=== PATIENT | female | born 1950 | race Asian ===

== ENCOUNTER 2020-07-01 00:40 | Emergency (ER) | payer OTHER ==
--- OUTSIDE RECORDS SUMMARY | 2020-07-01 00:43 | XMS REPORT | Continuity of Care Document ---
:1950 Author Organization [facility] t Address [address] [place] [address] Dr. Bell [address] [place] [id number] Care Team Providers Name Role Phone Unavailable Unavailable Unavailable Problems This patient has no known problems. Allergies, Adverse Reactions, Alerts This patient has no known allergies or adverse reactions. Medications This patient has no known medications. Procedures This patient has no known procedures. Results This patient has no known results.
[2020-07-01] MEDS ORDERED: dexAMETHasone 10 MG/ML VIAL ONE (01:59)
[2020-07-01] MEDS ORDERED: HYDROCODONE/CHLORPHEN 5 ML/OSYR ONE (01:59)
[2020-07-01] MEDS ORDERED: NA CHLORIDE 0.9% 1,000 ML ONE (02:00)
[2020-07-01 02:52] LABS: Basophils % 0.4 % (0-1.3); Lymphocytes % 17.7 % (15.3-44.8); MPV 7.6 fL (7.6-11.3); RBC Red Blood Cell Count 4.35 M/uL (3.86-4.86)
[2020-07-01 02:54] LABS: Protime INR 1.03
[2020-07-01 03:18] LABS: ALT/SGPT 43 U/L (12-78); AST/SGOT 49 U/L (15-37); Albumin 3.5 g/dL (3.4-5.0); Alkaline Phosphatase 64 U/L (45-117); BUN Blood Urea Nitrogen 17 mg/dL (7-18); Bicarbonate 25 mmol/L (21-32); Bilirubin Direct < 0.1 mg/dL (0-0.2); Bilirubin Total 0.3 mg/dL (0.2-1.0); Glucose Level 105 mg/dL (74-106); Lipase 87 U/L (73-393); Potassium 4.2 mmol/L (3.5-5.1); Protein, Total 8.1 g/dL (6.4-8.2); Sodium Level 135 mmol/L (136-145); Troponin (Emerg Dept Use Only) < 0.02 ng/mL (0.0-0.045)
[2020-07-01 03:22] LABS: Ferritin 1997.7 ng/mL (8-388)
[2020-07-01 03:31] LABS: Arterial Blood Carboxyhemoglob 1.2 % (0-1.5); Blood Gas Oxyhemoglobin 88.8 % (94-97); Blood O2 Saturation 90.6 % (92-98.5)
[2020-07-01 04:24] LABS: Urine Blood NEGATIVE (NEG); Urine Glucose NEGATIVE (NEG); Urine Protein 2+ (NEG); Urine Specific Gravity 1.025 (1.005-1.030); Urine pH 5.5 (5.0-7.0)
--- NOTE | 2020-07-01 04:28 | ER ---
Nurse's Notes [facility] Name: Jaime Padilla Age: 70 yrs Sex: Female : 1950 Arrival Date: 07/01/2020 Time: 00:44 Bed 16 Private MD: Diagnosis: Pneumonia. Positive Covid 19. Presentation: 07/01 00:50 Chief complaint: Patient states: I tested positive for covid on Friday. I have a cough jb4 that has gotten worse and I just want it to go away. My chest hurts when I cough and I feel weak. 00:50 Coronavirus screen: Client presents with at least one sign or symptom that may indicate jb4 coronavirus-19. Standard/surgical mask placed on the client. Client reports previous positive COVID test result. Date of collection: June 23, 2020. Ebola Screen: No symptoms or risks identified at this time. 00:50 Method Of Arrival: Ambulatory jb4 00:50 Initial Sepsis Screen: Does the patient meet any 2 criteria? HR > 90 bpm. Yes Does the jb4 patient have a suspected source of infection? No. Patient's initial sepsis screen is negative. Risk Assessment: Do you want to hurt yourself or someone else? Patient reports no desire to harm self or others. Onset of symptoms was June 23, 2020. Transition of care: patient was not received from another setting of care. 00:50 Acuity: AIDAN 3 jb4 Historical: - Allergies: 00:50 Iodine; jb4 00:50 Codeine; jb4 - Home Meds: 00:50 azithromycin 250 mg Oral tab [Active]; budesonide 0.5 mg/2 mL inhalation nbsp 3x per jb4 day, PRN [Active]; Simvastatin Oral [Active]; Verapamil Oral [Active]; solifenacin oral oral [Active]; - PMHx: 00:50 Hypertension; High Cholesterol; Hernia; jb4 - PSHx: 00:50 Hernia repair; jb4 - Immunization history:: Adult Immunizations up to date. - Social history:: Smoking status: Patient denies any tobacco usage or history of. Patient/guardian denies using alcohol, street drugs. Screenin:00 Abuse screen: Denies threats or abuse. Nutritional screening: No deficits noted. jb4 Tuberculosis screening: No symptoms or risk factors identified. Fall Risk None identified. Assessment: 01:00 General: Appears in no apparent distress. uncomfortable, Behavior is calm, cooperative, jb4 appropriate for age. Pain: Complains of pain in chest Pain does not radiate. Pain currently is 7 out of 10 on a pain scale. Quality of pain is described as aching. Neuro: Level of Consciousness is awake, alert, obeys commands, Oriented to person, place, time, situation. Cardiovascular: Patient's skin is warm and dry. Respiratory: Reports cough that is persistent Airway is patent Respiratory effort is even, unlabored, Respiratory pattern is regular, symmetrical. GI: No signs and/or symptoms were reported involving the gastrointestinal system. : No signs and/or symptoms were reported regarding the genitourinary system. EENT: No signs and/or symptoms were reported regarding the EENT system. Derm: Skin is intact, Skin is pink, warm \\T\\ dry. Musculoskeletal: Circulation, motion, and sensation intact. Range of motion: intact in all extremities. 02:00 Reassessment: Patient appears in no apparent distress at this time. Patient and/or jb4 family updated on plan of care and expected duration. Pain level reassessed. Patient is alert, oriented x 3, equal unlabored respirations, skin warm/dry/pink. PT denies allergy to Hydrocodone. States " It just makes me drowsy and loopy.". 03:00 Reassessment: Patient appears in no apparent distress at this time. Patient and/or jb4 family updated on plan of care and expected duration. Pain level reassessed. Patient is alert, oriented x 3, equal unlabored respirations, skin warm/dry/pink. 04:15 Reassessment: Patient appears in no apparent distress at this time. Patient and/or jb4 family updated on plan of care and expected duration. Pain level reassessed. Patient is alert, oriented x 3, equal unlabored respirations, skin warm/dry/pink. Provider at the bedside. Pt verbalizes desire not to be hospitalized. 04:44 Reassessment: Patient appears in no apparent distress at this time. Patient and/or jb4 family updated on plan of care and expected duration. Pain level reassessed. Patient is alert, oriented x 3, equal unlabored respirations, skin warm/dry/pink. Vital Signs: 00:50 BP 134 / 98; Pulse 98; Resp 16; Temp 100.3; Pulse Ox 94% on R/A; Weight 61.23 kg; jb4 Height 4 ft. 11 in. (149.86 cm); Pain 7/10; 02:00 BP 152 / 70; Pulse 91; Resp 16; Pulse Ox 96% on R/A; jb4 03:30 BP 134 / 86; Pulse 94; Resp 16; Pulse Ox 94% on R/A; jb4 04:15 BP 116 / 57; Pulse 92; Resp 18; Pulse Ox 93% on R/A; jb4 04:44 Temp 101.5(O); jb4 00:50 Body Mass Index 27.27 (61.23 kg, 149.86 cm) jb4 04:44 Pt refused tylenol and motrin states " I will take my own when I get home. jb4 ED Course: 00:44 Patient arrived in ED. cl3 00:49 Contreras Sorto MD is Attending Physician. pkl 00:50 Arm band placed on right wrist. jb4 01:00 Patient has correct armband on for positive identification. Placed in gown. Bed in low jb4 position. Call light in reach. Side rails up X 1. Pulse ox on. NIBP on. 01:06 Tre Tate, REA is Primary Nurse. jb4 01:19 Triage completed. jb4 02:35 Inserted saline lock: 20 gauge in left antecubital area, using aseptic technique. Blood oe collected. 02:49 CXR XRAY In Process Unspecified. EDMS 03:00 CT Chest Wo Con In Process Unspecified. EDMS 03:41 COVID swab sent to lab. sg 04:46 No provider procedures requiring assistance completed. IV discontinued, intact, jb4 bleeding controlled, No redness/swelling at site. Pressure dressing applied. Administered Medications: 02:00 Drug: Tussionex Pennkinetic ER 5 ml Route: PO; jb4 03:00 Follow up: Response: No adverse reaction; Marked relief of symptoms; Pain is decreased jb4 02:38 Drug: Decadron - Dexamethasone 6 mg Route: IVP; Site: left antecubital; jb4 03:00 Follow up: Response: No adverse reaction jb4 03:00 Drug: NS 0.9% 1000 ml Route: IV; Rate: 125 ml/hr; Site: left antecubital; jb4 04:45 Follow up: Response: No adverse reaction; IV Status: Order to discontinue infusion; IV jb4 Intake: 222ml Intake: 04:45 IV: 222ml; Total: 222ml. jb4 Outcome: 04:26 Discharge ordered by . lynda 04:46 Discharged to home ambulatory, with family. jb4 04:46 Condition: stable 04:46 Discharge instructions given to patient, Instructed on discharge instructions, follow up and referral plans. medication usage, Demonstrated understanding of instructions, follow-up care, medications, Prescriptions given X 2. 04:46 Patient left the ED. jb4 Signatures: Dispatcher [employer] EDMS Dk Hutchinson RN Contreras Martinez MD MD pkl Bryson, James, RN RN jb4 Froylan Griffin Charde cl3 Corrections: (The following items were deleted from the chart) 03:02 02:00 Reassessment: PT denies allergy to Hydrocodone. States " It just makes me drowsy jb4 and loopy." jb4 03:02 02:39 General: Appears in no apparent distress. uncomfortable, Behavior is calm, jb4 cooperative, appropriate for age, jb4 03:02 02:39 Pain: Complains of pain in chest Pain does not radiate. Pain currently is 7 out jb4 of 10 on a pain scale. Quality of pain is described as aching, Aggravated by Coughing jb4 03:02 02:39 Neuro: Level of Consciousness is awake, alert, obeys commands, Oriented to jb4 person, place, time, situation, jb4 03:02 02:39 Cardiovascular: Patient's skin is warm and dry. jb4 jb4 03:02 02:39 Respiratory: Airway is patent Respiratory effort is even, unlabored, Respiratory jb4 pattern is regular, symmetrical, jb4 04:22 04:15 Reassessment: Patient appears in no apparent distress at this time. Patient jb4 and/or family updated on plan of care and expected duration. Pain level reassessed. Patient is alert, oriented x 3, equal unlabored respirations, skin warm/dry/pink. jb4
--- NOTE | 2020-07-01 04:28 | EDPHYS ---
Physician Documentation [facility] Name: Jaime Padilla Age: 70 yrs Sex: Female : 1950 Arrival Date: 07/01/2020 Time: 00:44 Bed 16 Private MD: ED Physician Contreras Sorto HPI: 07/01 01:39 This 70 yrs old Female presents to ER via Ambulatory with complaints of Cough, pkl COVID +. 01:39 The patient or guardian reports cough, described as moderate. Onset: The pkl symptoms/episode began/occurred yesterday, and became worse just prior to arrival. Patient tested positive Covid 19 1 week ago. Historical: - Allergies: 00:50 Iodine; jb4 00:50 Codeine; jb4 - Home Meds: 00:50 azithromycin 250 mg Oral tab [Active]; budesonide 0.5 mg/2 mL inhalation nbsp 3x per jb4 day, PRN [Active]; Simvastatin Oral [Active]; Verapamil Oral [Active]; solifenacin oral oral [Active]; - PMHx: 00:50 Hypertension; High Cholesterol; Hernia; jb4 - PSHx: 00:50 Hernia repair; jb4 - Immunization history:: Adult Immunizations up to date. - Social history:: Smoking status: Patient denies any tobacco usage or history of. Patient/guardian denies using alcohol, street drugs. ROS: 01:39 Eyes: Negative for injury, pain, redness, and discharge, ENT: Negative for injury, pkl pain, and discharge, Neck: Negative for injury, pain, and swelling, Cardiovascular: Negative for chest pain, palpitations, and edema. 01:39 Respiratory: Positive for cough, with white sputum. 01:39 Abdomen/GI: Negative for abdominal pain, nausea, vomiting, and diarrhea. 01:39 Back: Negative for acute changes. 01:39 : Negative for urinary symptoms. 01:39 MS/extremity: Negative for acute changes. 01:39 Skin: Negative for rash. 01:39 Neuro: Negative for altered mental status. Exam: 01:39 Head/Face: Normocephalic, atraumatic. Eyes: Pupils equal round and reactive to light, pkl extra-ocular motions intact. Lids and lashes normal. Conjunctiva and sclera are non-icteric and not injected. Cornea within normal limits. Periorbital areas with no swelling, redness, or edema. ENT: Nares patent. No nasal discharge, no septal abnormalities noted. Tympanic membranes are normal and external auditory canals are clear. Oropharynx with no redness, swelling, or masses, exudates, or evidence of obstruction, uvula midline. Mucous membranes moist. Neck: Trachea midline, no thyromegaly or masses palpated, and no cervical lymphadenopathy. Supple, full range of motion without nuchal rigidity, or vertebral point tenderness. No Meningismus. Chest/axilla: Normal chest wall appearance and motion. Nontender with no deformity. No lesions are appreciated. Cardiovascular: Regular rate and rhythm with a normal S1 and S2. No gallops, murmurs, or rubs. Normal PMI, no JVD. No pulse deficits. 01:39 Respiratory: the patient does not display signs of respiratory distress, Respirations: normal, Breath sounds: rales, that are mild, are scattered. 01:39 Abdomen/GI: Bowel sounds: normal, Palpation: abdomen is soft and non-tender, in all quadrants. 01:39 Back: Exam negative for acute changes. 01:39 : Exam negative for acute changes. 01:39 Musculoskeletal/extremity: Exam is negative for acute changes. 01:39 Skin: Exam negative for rash. 01:39 Neuro: Orientation: is normal, Mentation: is normal, Cranial nerves: grossly normal, Motor: is normal. Vital Signs: 00:50 BP 134 / 98; Pulse 98; Resp 16; Temp 100.3; Pulse Ox 94% on R/A; Weight 61.23 kg; jb4 Height 4 ft. 11 in. (149.86 cm); Pain 7/10; 02:00 BP 152 / 70; Pulse 91; Resp 16; Pulse Ox 96% on R/A; jb4 03:30 BP 134 / 86; Pulse 94; Resp 16; Pulse Ox 94% on R/A; jb4 04:15 BP 116 / 57; Pulse 92; Resp 18; Pulse Ox 93% on R/A; jb4 04:44 Temp 101.5(O); jb4 00:50 Body Mass Index 27.27 (61.23 kg, 149.86 cm) jb4 04:44 Pt refused tylenol and motrin states " I will take my own when I get home. jb4 MDM: 00:49 Patient medically screened. pkl 04:22 Data reviewed: vital signs, nurses notes, lab test result(s), EKG, radiologic studies, pkl CT scan, plain films. ED course: Patient feeling better. Discussed lab and imaging studies with patient and . Patient does not want to be admitted at this time. Advised patient patient to return if symptoms are worse. Patient understood instructions. 07/01 01:33 Order name: Blood Culture Adult (2) pkl 07/01 01:33 Order name: BMP; Complete Time: 04:14 pkl 07/01 01:33 Order name: C-Reactive Protein; Complete Time: 04:14 pkl 07/01 01:33 Order name: CBC with Diff; Complete Time: 04:14 pkl 07/01 01:33 Order name: D-Dimer; Complete Time: 04:14 pkl 07/01 01:33 Order name: Ferritin; Complete Time: 04:14 pkl 07/01 01:33 Order name: Flu pkl 07/01 01:33 Order name: Lactate; Complete Time: 04:14 pkl 07/01 01:33 Order name: LFT's; Complete Time: 04:14 pkl 07/01 01:33 Order name: Lipase; Complete Time: 04:14 pkl 07/01 01:33 Order name: Procalcitonin; Complete Time: 04:14 pkl 07/01 01:33 Order name: PT-INR; Complete Time: 04:14 pkl 07/01 01:33 Order name: Ptt, Activated; Complete Time: 04:14 pkl 07/01 01:33 Order name: Strep pkl 07/01 01:33 Order name: Troponin (emerg Dept Use Only); Complete Time: 04:14 pkl 07/01 01:33 Order name: CXR XRAY pkl 07/01 01:33 Order name: EKG; Complete Time: 01:36 pkl 07/01 01:33 Order name: Cardiac monitoring; Complete Time: 02:39 pkl 07/01 01:33 Order name: Document PUI#; Complete Time: 01:43 pkl 07/01 01:33 Order name: Droplet/Contact Precautions; Complete Time: 01:43 pkl 07/01 01:33 Order name: ABG; Complete Time: 04:14 pkl 07/01 01:35 Order name: CT Chest Wo Con pkl 07/01 04:13 Order name: Urine Dipstick--Ancillary (enter results) mw2 07/01 04:15 Order name: Urine Dipstick-Ancillary EDMS 07/01 04:20 Order name: Throat Culture EDMS 07/01 01:33 Order name: EKG - Nurse/Tech; Complete Time: 02:39 pkl 07/01 01:33 Order name: IV Start; Complete Time: 02:39 pkl 07/01 01:33 Order name: Labs collected and sent; Complete Time: 02:39 pkl 07/01 01:33 Order name: Notify Health Dept [phone]/ ; Complete Time: :43 pkl 07/01 01:33 Order name: O2 Per Protocol; Complete Time: 01:43 pkl 07/01 01:33 Order name: O2 Sat Monitoring; Complete Time: 01:43 pkl 07/01 01:33 Order name: Urine Dipstick-Ancillary (obtain specimen); Complete Time: 04:06 pkl Administered Medications: 02:00 Drug: Tussionex Pennkinetic ER 5 ml Route: PO; jb4 03:00 Follow up: Response: No adverse reaction; Marked relief of symptoms; Pain is decreased jb4 02:38 Drug: Decadron - Dexamethasone 6 mg Route: IVP; Site: left antecubital; jb4 03:00 Follow up: Response: No adverse reaction jb4 03:00 Drug: NS 0.9% 1000 ml Route: IV; Rate: 125 ml/hr; Site: left antecubital; jb4 04:45 Follow up: Response: No adverse reaction; IV Status: Order to discontinue infusion; IV jb4 Intake: 222ml Disposition: 07/01/20 04:26 Discharged to Home. Impression: Pneumonia. Positive Covid 19.. - Condition is Stable. - Prescriptions for Guaifenesin- DM 10-100 mg/5 mL Oral Liquid - take 10 milliliter by ORAL route every 8 hours As needed as needed; 120 milliliter. Prednisone 20 mg Oral Tablet - take 2 tablet by ORAL route once daily for 5 days; 10 tablet. - Medication Reconciliation Form, Thank You Letter, Antibiotic Education, Prescription Opioid Use form. - Follow up: Private Physician; When: 2 - 3 days; Reason: Re-evaluation by your physician. - Problem is new. - Symptoms have improved. Signatures: Dispatcher [employer] Contreras Nolen MD MD pkl Tre Tate, RN RN jb4 Corrections: (The following items were deleted from the chart) 04:07 01:33 Nagy ordered. pkl jb4 04:46 04:26 07/01/2020 04:26 Discharged to Home. Impression: Pneumonia. Positive Covid 19.. jb4 Condition is Stable. Forms are Medication Reconciliation Form, Thank You Letter, Antibiotic Education, Prescription Opioid Use. Follow up: Private Physician; When: 2 - 3 days; Reason: Re-evaluation by your physician. Problem is new. Symptoms have improved. pkl
--- NOTE | 2020-07-01 08:41 | RAD REPORT ---
EXAM DESCRIPTION: Maria G Single View07/01/2020 2:49 am CLINICAL HISTORY: Chest pain COMPARISON: 2008 FINDINGS: [id number] bilateral pulmonary opacities. The heart is normal size IMPRESSION: [id number] bilateral pulmonary opacities may indicate Covid pneumonia
--- NOTE | 2020-07-01 09:20 | RAD REPORT ---
EXAM DESCRIPTION: CT - Thorax Wo Denny - 07/01/2020 6:24 am CLINICAL HISTORY: SOB, cough TECHNIQUE: Contiguous axial images obtained through the chest without IV contrast. Coronal and sagit tyrone reformatted images provided. This exam was performed according to our departmental dose-optimization program, which includes autom ated exposure control, adjustment of the mA and/or kV according to patient size and/or use of iterati ve reconstruction technique. COMPARISON: No prior exams provided for comparison. FINDINGS: Lungs: Patchy multifocal groundglass opacities bilaterally. Airways are patent. Pleura: No effusion. No pneumothorax. Heart and pericardium: The heart is enlarged. Coronary artery calcification. No pericardial effusion. Mediastinum and lucia: Top normal mediastinal lymph nodes. Lower neck and chest wall: Unremarkable Vessels: Mild atherosclerotic disease. The ascending aorta measures 3.9 cm in maximum diameter. Upper abdomen: The liver is enlarged. Layering gallstones within a mildly distended gallbladder. Bones: Multilevel spondylosis. No acute fracture. IMPRESSION: 1. Imaging features can be seen with viral pneumonia, though are nonspecific and can o ccur with a variety of infectious and noninfectious processes. PneInd Reference: https://pubs.rsna.or g/doi/full/10.1148/ryct.[email or web address] 2. Other findings as above. Electronically signed by: Colin Barriga MD 07/01/2020 3:08 AM MUNICIPAL CLERK Due to temporary technical issues with the PACS/Fluency reporting system, reports are being signed by the in house radiologists without review as a courtesy to insure prompt reporting. The interpreting radiologist is fully responsible for the content of the report.
--- NOTE | 2020-07-01 20:01 | EKG ---
Test Date: 2020-07-01 Test Time: 02:12:01 Heel Molder: EDISON MEASUREMENT RESULTS: Intervals: Rate: 95 [place]: 164 QRSD: 98 QT: 370 QTc: 464 [place]: P: 46 NJ: 164 QRS: 85 T: 6 INTERPRETIVE STATEMENTS: Sinus rhythm with occasional and consecutive premature ventricular complexes and fusion complexes Cannot rule out Anterior infarct, age undetermined Abnormal ECG Compared to ECG 12/24/2012 10:00:59 Fusion complex(es) now present Ventricular premature complex(es) now present T-wave abnormality no longer present Possible ischemia no longer present Myocardial infarct finding still present Electronically Signed On 07-01-20 20:01:03 SUGAR REPROCESS OPERATOR HEAD by Tanner Ricardo
[2020-07-06 00:52] VITALS: BP 116/57; TEMP 101.5; O2SAT 93
== END 2020-07-01 04:46 | disposition home or self-care (01) ==
LOC: ER 00:40
DX: U07.1 COVID-19 (principal); J18.9 Pneumonia, unspecified organism; I10 Essential (primary) hypertension; E78.00 Pure hypercholesterolemia, unspecified; Z88.5 Allergy status to narcotic agent; Z91.048 Other nonmedicinal substance allergy status
CPT/HCPCS: 96361; 93005 ×2; 87040 ×2; 87070; 85025; 80048; 36415; 85610; 85379; 80076; 87081; 83605; 85730; 81003; 84484; 82728; 83690; 84145; 86140; 87804 ×2; 71250; 71045; 82805; 96374; 99284; U0003; J1100; J7030

== ENCOUNTER 2020-07-04 09:49 | Inpatient (IN) | payer OTHER ==
[2020-07-04 11:01] LABS: Basophils % 0.3 % (0-1.3); Hematocrit 42.5 % (36.0-45.0); Lymphocytes % 16.9 % (15.3-44.8); MPV 7.6 fL (7.6-11.3); RBC Red Blood Cell Count 4.53 M/uL (3.86-4.86)
[2020-07-04 11:04] LABS: Protime INR 1.02
[2020-07-04 11:29] LABS: ALT/SGPT 38 U/L (12-78); AST/SGOT 50 U/L (15-37); Albumin 3.2 g/dL (3.4-5.0); Alkaline Phosphatase 75 U/L (45-117); BUN Blood Urea Nitrogen 17 mg/dL (7-18); Bicarbonate 25 mmol/L (21-32); Bilirubin Direct 0.1 mg/dL (0-0.2); Bilirubin Total 0.6 mg/dL (0.2-1.0); Glucose Level 97 mg/dL (74-106); Lipase 81 U/L (73-393); Potassium 3.7 mmol/L (3.5-5.1); Protein, Total 8.7 g/dL (6.4-8.2); Sodium Level 136 mmol/L (136-145); Troponin (Emerg Dept Use Only) < 0.02 ng/mL (0.0-0.045)
--- NOTE | 2020-07-04 11:30 | RAD REPORT ---
EXAM DESCRIPTION: Treyt Single View07/04/2020 11:21 am CLINICAL HISTORY: Chest pain COMPARISON: July 01 FINDINGS: Moderate bilateral pulmonary opacities have mildly worsened. Heart remains enlarged IMPRESSION: Worsening in moderate bilateral pulmonary opacities the which may indicate Covid pneumon ia
--- NOTE | 2020-07-04 11:43 | ER ---
Nurse's Notes [facility] Name: Jaime Padilla Age: 70 yrs Sex: Female : 1950 Arrival Date: 07/04/2020 Time: 09:52 Bed 15 Private MD: Diagnosis: Coronavirus infection, [id number];Pneumonia, unspecified organism;Hypoxia Presentation: 07/04 09:52 Chief complaint: EMS states: Tested positive for COVID 12-5-20; woke this morning with jl7 SOB, 91% on arrival and anxious, also dx with pneumonia. Coronavirus screen: Client denies travel out of the [place] in the last 14 days. shortness of breath, Client presents with at least one sign or symptom that may indicate coronavirus-19. Standard/surgical mask placed on the client. Provider contacted for isolation considerations. Client reports previous positive COVID test result. Date of collection: July 01, 2020 results are located within the EHR/EMR. Staff notified of need for isolation. Ebola Screen: No symptoms or risks identified at this time. Initial Sepsis Screen: Does the patient meet any 2 criteria? HR > 90 bpm. No. Patient's initial sepsis screen is negative. Does the patient have a suspected source of infection? Yes: Productive cough/pneumonia. Risk Assessment: Do you want to hurt yourself or someone else? Patient reports no desire to harm self or others. Onset of symptoms was July 04, 2020. Care prior to arrival: None. Transition of care: patient was not received from another setting of care. 09:52 Method Of Arrival: [facility] 09:52 Acuity: AIDAN 3 jl7 Triage Assessment: 09:57 General: Appears in no apparent distress. uncomfortable, Behavior is cooperative, jl7 anxious. Pain: Denies pain. Neuro: Level of Consciousness is awake, alert, obeys commands, Oriented to person, place, time, situation. Cardiovascular: Patient's skin is warm and dry. Respiratory: Reports shortness of breath at rest Onset: The symptoms/episode began/occurred this morning, the patient has moderate shortness of breath. Derm: Skin is pink, warm \\T\\ dry. Historical: - Allergies: 09:57 Codeine; jl7 09:57 Iodine; jl7 - Home Meds: 09:57 Simvastatin Oral [Active]; solifenacin Oral [Active]; Verapamil Oral [Active]; jl7 azithromycin 250 mg Oral tab [Active]; budesonide 0.5 mg/2 mL inhalation nbsp 3x per day, PRN [Active]; - PMHx: 09:57 Hernia; High Cholesterol; Hypertension; jl7 - PSHx: 09:57 Hernia repair; jl7 - Immunization history:: Adult Immunizations unknown. - Social history:: Smoking status: Patient denies any tobacco usage or history of. Screenin:53 Abuse screen: Denies threats or abuse. Nutritional screening: No deficits noted. tw2 Tuberculosis screening: No symptoms or risk factors identified. Fall Risk None identified. Assessment: 10:10 General: Appears in no apparent distress. slender, well groomed, Behavior is tw2 cooperative, anxious. Pain: Denies pain. Neuro: Level of Consciousness is awake, alert, obeys commands, Oriented to person, place, time, situation. Cardiovascular: Heart tones S1 S2 Capillary refill < 3 seconds Patient's skin is warm and dry. Rhythm is regular. Respiratory: Reports shortness of breath at rest on exertion Airway is patent Respiratory effort is even, unlabored, Respiratory pattern is regular, symmetrical, Breath sounds are diminished bilaterally. GI: No signs and/or symptoms were reported involving the gastrointestinal system. Abdomen is flat, Bowel sounds present X 4 quads. : No signs and/or symptoms were reported regarding the genitourinary system. EENT: No signs and/or symptoms were reported regarding the EENT system. Derm: No signs and/or symptoms reported regarding the dermatologic system. Musculoskeletal: Range of motion: intact in all extremities. 11:05 Reassessment: Patient appears in no apparent distress at this time. No changes from tw2 previously documented assessment. Patient and/or family updated on plan of care and expected duration. Pain level reassessed. 11:57 Reassessment: Patient appears in no apparent distress at this time. Patient and/or tw2 family updated on plan of care and expected duration. Pain level reassessed. 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 12:27 Reassessment: IV abx available from pharmacy at this time. tw2 13:04 Reassessment: Patient appears in no apparent distress at this time. No changes from tw2 previously documented assessment. Patient and/or family updated on plan of care and expected duration. Pain level reassessed. 13:35 Reassessment: pt was given regular diet tray at this time. tw2 14:05 Reassessment: Patient appears in no apparent distress at this time. No changes from tw2 previously documented assessment. Patient and/or family updated on plan of care and expected duration. Pain level reassessed. 14:22 Reassessment: RECD REPORT FROM MADHAV LUCIA. PT ON ER HOLD, SEE [facility]. bp Vital Signs: 09:52 BP 157 / 96; Pulse 94; Resp 31 S; Temp 97.3(O); Pulse Ox 85% on R/A; Weight 60.78 kg; bp 09:52 Pulse Ox 96% on 3 lpm NC; jl7 11:05 BP 133 / 77; Pulse 92; Resp 26; Pulse Ox 98% 3 lpm ; tw2 11:57 BP 125 / 72; Pulse 85; Resp 26; Pulse Ox 97% on 2 lpm NC; tw2 13:04 BP 128 / 75; Pulse 82; Resp 27; Pulse Ox 98% on 2 lpm NC; tw2 14:04 BP 126 / 72; Pulse 91; Resp 25; Pulse Ox 95% on 2 lpm NC; tw2 ED Course: 09:52 Patient arrived in ED. jl7 09:52 Placed in gown. Bed in low position. radiation monitor on. Pulse ox on. NIBP on. Warm tw2 blanket given. 09:53 Madhav Stinson RN is Primary Nurse. tw2 09:55 Marilee Caban FNP-C is [facility]. kb 09:55 Yair Lemons MD is Attending Physician. kb 09:56 Triage completed. jl7 09:57 Arm band placed on. tw2 10:06 EKG done, by ED staff, reviewed by Marilee PETER. em1 10:10 Inserted saline lock: 20 gauge in right antecubital area, using aseptic technique. tw2 Blood collected. 11:21 Chest Single View In Process Unspecified. EDMS 11:37 Awaiting: IV ABX from pharmacy. tw2 11:43 River Sarmiento MD is Hospitalizing Provider. kb 14:10 Report given to REA Rosales. tw2 14:13 Primary Nurse role handed off by Madhav Stinson RN bp 14:13 Bobby Jimenez, RN is Primary Nurse. bp 14:22 No provider procedures requiring assistance completed. Patient admitted, IV remains in bp place. 23:27 Primary Nurse role handed off by Bobby Jimenez, REA 07/06 08:05 Dee Dee Mahajan, RN is Primary Nurse. ph Administered Medications: 07/04 11:55 Drug: Decadron - Dexamethasone 10 mg Route: IVP; Site: right antecubital; tw2 12:10 Follow up: Response: No adverse reaction tw2 12:32 Drug: Zithromax 500 mg Route: IVPB; Infused Over: 1 hrs; Site: right antecubital; tw2 13:35 Follow up: Response: No adverse reaction; IV Status: Completed infusion; IV Intake: tw2 250ml Intake: 13:35 IV: 250ml; Total: 250ml. tw2 Outcome: 11:43 Decision to Hospitalize by Provider. kb 14:22 Admitted to ER Hold. Please see [facility] for further documentation. bp 14:22 Condition: stable 14:22 Instructed on the need for admit. 07/06 17:13 Patient left the ED. ph Signatures: Dispatcher [employer] EDMS Marilee Caban, SOUNDSCRIBER MECHANIC-C SOUNDSCRIBER MECHANIC-Ckb Dk Hutchinson, RN RN [facility] em1 Dee Dee Mahajan, REA RN Madhav Stinson, RN RN tw2 Rupesh Dowling RN RN jl7 Bobby Jimenez, REA RN bp Corrections: (The following items were deleted from the chart) 07/04 10:03 09:52 BP 157 / 96; Pulse 89bpm; Resp 31bpm; Spontaneous; Pulse Ox 97% 3 lpm Nasal jl7 Cannula; Temp 97.3F Oral; 60.78 kg; jl7 10:03 09:52 Pulse Ox 85% RA; tw2 jl7 11:07 11:05 BP 133 / 77; Pulse 92bpm; Resp 26bpm; Pulse Ox 96% 3 lpm; tw2 tw2 14:42 09:52 BP 157 / 96; Pulse 94bpm; Resp 31bpm; Spontaneous; Pulse Ox 85% RA; Temp 97.3F bp Oral; 60.78 kg; jl7
--- NOTE | 2020-07-04 11:43 | EDPHYS ---
Physician Documentation [facility] Name: Jaime Padilla Age: 70 yrs Sex: Female : 1950 Arrival Date: 07/04/2020 Time: 09:52 Bed 15 Private MD: ED Physician Yair Lemons HPI: 07/04 12:45 This 70 yrs old Female presents to ER via EMS with complaints of Shortness Of kb Breath - COVID+. 12:45 The patient has shortness of breath at rest. Onset: The symptoms/episode began/occurred kb 5 day(s) ago, and became worse today. Duration: The symptoms are continuous. The patient's shortness of breath is aggravated by nothing, is alleviated by nothing. Associated signs and symptoms: Pertinent positives: non-productive cough, fever. Severity of symptoms: At their worst the symptoms were moderate in the emergency department the symptoms are unchanged. The patient has not experienced similar symptoms in the past. The patient has been recently seen by a physician:. Pt reports she was diagnosed with COVID-19 5 days ago. Came in today for increased shortness of breath. Historical: - Allergies: 09:57 Codeine; jl7 09:57 Iodine; jl7 - Home Meds: 09:57 Simvastatin Oral [Active]; solifenacin Oral [Active]; Verapamil Oral [Active]; jl7 azithromycin 250 mg Oral tab [Active]; budesonide 0.5 mg/2 mL inhalation nbsp 3x per day, PRN [Active]; - PMHx: 09:57 Hernia; High Cholesterol; Hypertension; jl7 - PSHx: 09:57 Hernia repair; jl7 - Immunization history:: Adult Immunizations unknown. - Social history:: Smoking status: Patient denies any tobacco usage or history of. ROS: 12:50 Cardiovascular: Negative for chest pain, palpitations, and edema, Abdomen/GI: Negative kb for abdominal pain, nausea, vomiting, diarrhea, and constipation, MS/Extremity: Negative for injury and deformity, Skin: Negative for injury, rash, and discoloration, Neuro: Negative for headache, weakness, numbness, tingling, and seizure. 12:50 Constitutional: Positive for fever, malaise. 12:50 Respiratory: Positive for cough, shortness of breath, Negative for Exam: 12:50 Constitutional: This is a well developed, well nourished patient who is awake, alert, kb and in no acute distress. Head/Face: Normocephalic, atraumatic. Chest/axilla: Normal chest wall appearance and motion. Nontender with no deformity. No lesions are appreciated. Cardiovascular: Regular rate and rhythm with a normal S1 and S2. No gallops, murmurs, or rubs. Normal PMI, no JVD. No pulse deficits. Respiratory: Lungs have equal breath sounds bilaterally, clear to auscultation and percussion. No rales, rhonchi or wheezes noted. No increased work of breathing, no retractions or nasal flaring. Abdomen/GI: Soft, non-tender, with normal bowel sounds. No distension or tympany. No guarding or rebound. No evidence of tenderness throughout. Skin: Warm, dry with normal turgor. Normal color with no rashes, no lesions, and no evidence of cellulitis. MS/ Extremity: Pulses equal, no cyanosis. Neurovascular intact. Full, normal range of motion. Neuro: Awake and alert, GCS 15, oriented to person, place, time, and situation. Cranial nerves II-XII grossly intact. Motor strength 5/5 in all extremities. Sensory grossly intact. Cerebellar exam normal. Normal gait. Vital Signs: 09:52 BP 157 / 96; Pulse 94; Resp 31 S; Temp 97.3(O); Pulse Ox 85% on R/A; Weight 60.78 kg; bp 09:52 Pulse Ox 96% on 3 lpm NC; jl7 11:05 BP 133 / 77; Pulse 92; Resp 26; Pulse Ox 98% 3 lpm ; tw2 11:57 BP 125 / 72; Pulse 85; Resp 26; Pulse Ox 97% on 2 lpm NC; tw2 13:04 BP 128 / 75; Pulse 82; Resp 27; Pulse Ox 98% on 2 lpm NC; tw2 14:04 BP 126 / 72; Pulse 91; Resp 25; Pulse Ox 95% on 2 lpm NC; tw2 MDM: 09:55 Patient medically screened. kb 11:38 Data reviewed: vital signs, nurses notes. Data interpreted: Pulse oximetry: on room air kb is 85 %. Interpretation: hypoxia. Counseling: I had a detailed discussion with the patient and/or guardian regarding: the historical points, exam findings, and any diagnostic results supporting the discharge/admit diagnosis, lab results, radiology results, the need for further work-up and treatment in the hospital. Physician consultation: River Sarmiento MD was contacted at 11:42, regarding admission, to the telemetry unit. patient's condition, and will see patient in ED, shortly. 07/04 09:56 Order name: Blood Culture Adult (2) kb 07/04 09:56 Order name: BMP kb 07/04 09:56 Order name: C-Reactive Protein kb 07/04 09:56 Order name: CBC with Diff kb 07/04 09:56 Order name: D-Dimer kb 07/04 09:56 Order name: Ferritin kb 07/04 09:56 Order name: Lactate kb 07/04 09:56 Order name: LFT's kb 07/04 09:56 Order name: Lipase kb 07/04 09:56 Order name: Procalcitonin kb 07/04 09:56 Order name: PT-INR kb 07/04 09:56 Order name: Ptt, Activated kb 07/04 09:56 Order name: Troponin (emerg Dept Use Only) kb 07/04 09:56 Order name: Urine Microscopic Only kb 07/04 10:57 Order name: Protime (+INR); Complete Time: 11:17 EDMS 07/04 10:58 Order name: PTT, Activated Partial Thromb; Complete Time: 11:17 EDMS 07/04 10:58 Order name: D-Dimer; Complete Time: 11:17 EDMS 07/04 10:58 Order name: Lactate; Complete Time: 11:17 EDMS 07/04 10:58 Order name: Procalcitonin; Complete Time: 12:15 EDMS 07/04 10:58 Order name: Blood Culture EDMS 07/04 10:58 Order name: Blood Culture EDMS 07/04 10:59 Order name: Basic Metabolic Panel; Complete Time: 11:33 EDMS 07/04 10:59 Order name: Liver (Hepatic) Function; Complete Time: 11:33 EDMS 07/04 10:59 Order name: Troponin (Emerg Dept Use Only); Complete Time: 11:33 EDMS 07/04 10:59 Order name: C-Reactive Protein; Complete Time: 11:33 EDMS 07/04 10:59 Order name: Lipase; Complete Time: 11:33 EDMS 07/04 10:59 Order name: Ferritin; Complete Time: 11:33 EDMS 07/04 11:03 Order name: CBC with Automated Diff; Complete Time: 11:05 EDMS 07/04 14:23 Order name: Blood Culture EDMS 07/05 04:31 Order name: CBC with Automated Diff; Complete Time: 17:29 EDMS 07/04 09:56 Order name: CXR XRAY kb 07/04 09:56 Order name: EKG; Complete Time: 12:53 kb 07/04 09:56 Order name: Cardiac monitoring; Complete Time: 09:59 kb 07/04 09:56 Order name: Droplet/Contact Precautions; Complete Time: 09:59 kb 07/04 09:56 Order name: EKG - Nurse/Tech; Complete Time: 10:06 kb 07/04 09:56 Order name: IV Start; Complete Time: 10:14 kb 07/04 09:56 Order name: Labs collected and sent; Complete Time: 10:14 kb 07/04 09:56 Order name: O2 Per Protocol; Complete Time: 09:59 kb 07/04 09:56 Order name: O2 Sat Monitoring; Complete Time: 09:58 kb 07/04 10:19 Order name: Chest Single View; Complete Time: 11:33 EDMS 07/04 12:01 Order name: Diet Regular; Complete Time: 12:40 tw2 07/05 04:44 Order name: Comprehensive Metabolic Panel; Complete Time: 17:29 EDMS 07/05 04:45 Order name: C-Reactive Protein; Complete Time: 17:29 EDMS 07/05 04:45 Order name: Magnesium; Complete Time: 17:29 EDMS 07/05 04:45 Order name: Ferritin; Complete Time: 17:29 EDMS 07/06 03:52 Order name: Basic Metabolic Panel EDMS 07/06 03:52 Order name: Phosphorus EDMS 07/06 03:52 Order name: C-Reactive Protein EDMS 07/06 03:52 Order name: Magnesium EDMS Administered Medications: 11:55 Drug: Decadron - Dexamethasone 10 mg Route: IVP; Site: right antecubital; tw2 12:10 Follow up: Response: No adverse reaction tw2 12:32 Drug: Zithromax 500 mg Route: IVPB; Infused Over: 1 hrs; Site: right antecubital; tw2 13:35 Follow up: Response: No adverse reaction; IV Status: Completed infusion; IV Intake: tw2 250ml Disposition: 07/04/20 11:43 Hospitalization ordered by River Sarmiento for Observation. Preliminary diagnosis are Coronavirus infection, unspecified - COVID-19, Pneumonia, unspecified organism, Hypoxia. - Bed requested for [facility] ER HOLD. - Status is Observation. ph - Condition is Stable. - Problem is new. - Symptoms are unchanged. Addendum: 07/17/2020 19:09 Co-signature as Attending Physician, Yair Lemons MD. m a2 Signatures: Dispatcher [employer] EDMS Marilee Caban, BATTER OUT-C BATTER OUT-Ckb Dee Dee Mahajan, RN RN Naz Stinson, RN RN tw2 Rupesh Dowling, RN RN jl7 Bobby Jimenez, RN RN Yair Ayala MD MD ma2 Corrections: (The following items were deleted from the chart) 07/04 14:21 11:43 Hospitalization Ordered by River Sarmiento MD for Observation. Preliminary bp diagnosis is Coronavirus infection, unspecified - COVID-19; Pneumonia, unspecified organism; Hypoxia. Bed requested for Telemetry/MedSurg (observation). Status is Observation. Condition is Stable. Problem is new. Symptoms are unchanged. kb 14:22 14:21 07/04/2020 11:43 Hospitalization Ordered by River Sarmiento MD for Observation. bp Preliminary diagnosis is Coronavirus infection, unspecified - COVID-19; Pneumonia, unspecified organism; Hypoxia. Bed requested for [facility] ER HOLD. Status is Observation. Condition is Stable. Problem is new. Symptoms are unchanged. bp 07/06 17:13 07/04 14:22 07/04/2020 11:43 Hospitalization Ordered by River Sarmiento MD for ph Observation. Preliminary diagnosis is Coronavirus infection, unspecified - COVID-19; Pneumonia, unspecified organism; Hypoxia. Bed requested for [facility] ER HOLD. Status is Observation. Condition is Stable. Problem is new. Symptoms are unchanged. bp
[2020-07-04] MEDS ORDERED: dexAMETHasone 10 MG/ML VIAL ONE (11:52)
[2020-07-04] MEDS ORDERED: AZITHROMYCIN IV 500 MG in NA CHLORIDE 0.9% 250 ML IVPB ONE (12:00)
--- NOTE | 2020-07-04 12:32 | P.HP ---
Certification for Inpatient Patient admitted to: Inpatient With expected LOS: >2 Midnights Practitioner: I am a practitioner with admitting privileges, knowledge of patient current condition, hospital course, and medical plan of care. Services: Services provided to patient in accordance with Admission requirements found in Title 42 Section 412.3 of the Code of Federal Regulations Patient History Date of Service: 07/04/20 Reason for admission: COVID 19 pneumonia, hypoxia History of Present Illness: 70yo female, presents to ED due to worsening SOB and cough. She tested positive for COVID ~1 week ago. She reports had COVID pneumonia and has recovered. She was concerned with significant SOB over the past day so she came to ED. She otherwise denies chest pain, abd pain, n/v/d, dysuria, new rashes. In the ED she was noted to desat to 85% on room air and with slight tachypnea. I was contacted for admission. CRP: 69. elevated D-dimer, had CTA 3 days ago and was negative for PE. Allergies codeine [Codeine] Allergy (Verified 09/17/12 20:01) Rash iodine Allergy (Verified 09/17/12 20:00) Rash Home Medications: Acetaminophen [Tylenol*] 650 mg PO Q6H PRN #0 tab 09/18/12 Budesonide [Pulmicort*] 07/04/20 Simvastatin 07/04/20 Solifenacin Succinate 07/04/20 Verapamil HCl [Calan] 40 mg PO 07/04/20 - Past Medical/Surgical History -: HTN -: HLD -: hernia repair - Family History Family History: Reviewed- Non-Contributory - Social History Smoking Status: Never smoker Alcohol use: No CD- Drugs: No Caffeine use: Yes Place of Residence: Home Review of Systems 10-point ROS is otherwise unremarkable Physical Examination - Physical Exam General: Alert, Mild distress HEENT: Sclerae nonicteric Respiratory: Other (slight tachypnea, on 4L NC) Cardiovascular: No edema, Regular rate/rhythm Gastrointestinal: Soft and benign, No tenderness Musculoskeletal: No tenderness Integumentary: No rashes Neurological: Normal speech, Normal affect - Studies Laboratory Data (last 24 hrs) 07/04/20 10:10: PT 12.0, INR 1.02, APTT 30.4 07/04/20 10:10: WBC 6.2 D, Hgb 14.4, Hct 42.5, Plt Count 205 07/04/20 10:10: Sodium 136, Potassium 3.7, BUN 17, Creatinine 0.73, Glucose 97, Total Bilirubin 0.6, AST 50 H, ALT 38, Alkaline Phosphatase 75, Lipase 81 Assessment and Plan - Advance Directives Does patient have a Living Will: No Does patient have a Durable POA for Healthcare: No Physician Review Additional Text: acute hypoxic respiratory failure secondary to COVID19 Pneumonia HTN HLD -admit to COVID unit -IV solumedrol 80 q12hr, eliquis for VTE prophylaxis -pulm consulted -obtain home medications and restart as appropriate -trend CRP VTE: eliquis code: full Dispo: dc home in 24-48hrs, likely will need home O2 Time Spent Managing Pts Care (In Minutes): 55
[2020-07-04 15:19] VITALS: BMI 23.0
--- OUTSIDE RECORDS SUMMARY | 2020-07-04 16:46 | XMS REPORT | Continuity of Care Document ---
:1950 Author Organization [facility] t Address [address] [place] [address] Dr. Bell [address] [place] [id number] Care Team Providers Name Role Phone Unavailable Unavailable Unavailable Problems This patient has no known problems. Allergies, Adverse Reactions, Alerts This patient has no known allergies or adverse reactions. Medications This patient has no known medications. Procedures This patient has no known procedures. Results This patient has no known results.
[2020-07-04] MEDS ORDERED: METHYLPREDNISOLONE 40 MG INJ ONE (20:42)
[2020-07-04] MEDS ORDERED: APIXABAN 5 MG TABLET ONE (20:42)
[2020-07-04] MEDS: METHYLPREDNISOLONE 40 MG INJ IV SCH (20:55)
[2020-07-04] MEDS: APIXABAN 5 MG TABLET PO SCH (20:55)
[2020-07-05 04:08] LABS: Absolute Lymphocytes (CBC) 1.2 K/uL (0.7-4.9); Basophils % 0.2 % (0-1.3); Hematocrit 39.9 % (36.0-45.0); Lymphocytes % 26.9 % (15.3-44.8); MPV 7.5 fL (7.6-11.3); RBC Red Blood Cell Count 4.26 M/uL (3.86-4.86)
[2020-07-05 04:30] LABS: Albumin 2.8 g/dL (3.4-5.0); Bilirubin Total 0.4 mg/dL (0.2-1.0); C-Reactive Protein 47.4 mg/L (<3.00); Ferritin 1652.4 ng/mL (8-388); Magnesium 2.5 mg/dL (1.8-2.4); Potassium 3.8 mmol/L (3.5-5.1); Protein, Total 7.7 g/dL (6.4-8.2)
[2020-07-05] MEDS ORDERED: POTASSIUM CL SA 10 MEQ TAB PO ONE (05:33)
--- NOTE | 2020-07-05 07:17 | EKG ---
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
[2020-07-05] MEDS ORDERED: APIXABAN 5 MG TABLET ONE ×2 (08:40→21:22)
[2020-07-05] MEDS ORDERED: METHYLPREDNISOLONE 40 MG INJ ONE (08:40)
[2020-07-05] MEDS: METHYLPREDNISOLONE 40 MG INJ IV SCH ×2 (09:00→21:00)
[2020-07-05] MEDS: APIXABAN 5 MG TABLET PO SCH ×2 (09:00→21:00)
--- NOTE | 2020-07-05 12:34 | P.CNS ---
Date of Consult: 07/05/20 Reason for Consult: Pneumonia due to flor virus Chief Complaint: COVID 19 pneumonia, hypoxia History of Present Illness: Patient is 70 years of age admitted to the emergency department worsening shortness of breath and cough was diagnosed with flor virus infection a week ago admitted is doing better he has improved with the use of steroids oxygenation satisfactory no evidence of pulmonary embolus Patient able to be managed on 4 L a nasal cannula oxygen Allergies codeine [Codeine] Allergy (Verified 09/17/12 20:01) Rash iodine Allergy (Verified 09/17/12 20:00) Rash Home Medications: Budesonide [Pulmicort*] 1 vial NEB TID 07/04/20 Simvastatin 40 mg PO DAILY 07/04/20 Solifenacin Succinate 5 tab PO DAILY 07/04/20 Verapamil HCl [Calan] 240 mg PO Q12H 07/04/20 predniSONE [Deltasone] 5 mg PO BID 07/05/20 - Past Medical/Surgical History Diabetic: No -: HTN -: HLD -: hernia repair - Social History Smoking Status: Never smoker Alcohol use: No CD- Drugs: No Caffeine use: Yes Place of Residence: Home Review of Systems General: Weakness Respiratory: Shortness of Breath Physical Examination Temp Pulse Resp BP Pulse Ox 97.5 F 88 33 H 144/78 H 93 07/05/20 12:00 07/05/20 12:00 07/05/20 12:00 07/05/20 12:00 07/05/20 12:00 General: Alert, In no apparent distress, Oriented x3 Respiratory: Clear to auscultation bilaterally Cardiovascular: No edema, Regular rate/rhythm Laboratory Data (last 24 hrs) 07/04/20 09:56: PT Cancelled, INR Cancelled, APTT Cancelled 07/04/20 09:56: Total Bilirubin Cancelled, AST Cancelled, ALT Cancelled, Alkaline Phosphatase Cancelled, Lipase Cancelled 07/04/20 09:56: WBC Cancelled, Hgb Cancelled, Hct Cancelled, Plt Count Cancelled 07/04/20 09:56: Sodium Cancelled, Potassium Cancelled, BUN Cancelled, Creatinine Cancelled, Glucose Cancelled - Problems (1) Pneumonia due to 2019 novel coronavirus Current Visit: Yes Status: Acute Plan: Patient is 70 years of age admitted with pneumonia due to flor virus she is currently doing much better plan to discharge her 4 L of nasal cannula oxygen continue with prednisone 20 mg twice a day for a week and then 10 mg twice a day in addition to aspirin is improved since admission continue with Pulmicort follow-up with me in a week labs reviewed CRP is decline
--- NOTE | 2020-07-05 20:00 | P.PN ---
Subjective Date of Service: 07/05/20 Chief Complaint: COVID 19 pneumonia, hypoxia Subjective: No new changes (still reporting SOB, requiring 4-5L NC to maintain SpO2 ~92%. tachypneic. doesn't feel well) Review of Systems 10-point ROS is otherwise unremarkable Physical Examination - Vital Signs Temperature: 97.5 F Blood Pressure: 141/89 Pulse: 92 Respirations: 30 Pulse Ox (%): 92 - Physical Exam General: Alert, Mild distress HEENT: Sclerae nonicteric Respiratory: Other (tachypneic (24-26)) Cardiovascular: No edema, Regular rate/rhythm Gastrointestinal: Soft and benign, No tenderness Neurological: Normal speech, Normal affect - Studies Microbiology Data (last 24 hrs): 07/04/20 10:17 Blood - Blood Anaerobic Blood Culture - Final Assessment & Plan Physician Review Additional Text: acute hypoxic respiratory failure secondary to COVID19 Pneumonia HTN HLD -continue IV solumedrol 80 q12hr, eliquis for VTE prophylaxis -pulm consulted, appreciate assistance -CRP improving -continues to be tachypneic, requiring 4-5L NC -not quite ready to go home, will f/u in afternoon for improvement VTE: eliquis code: full Dispo: dc home in 24-48hrs, will need home O2 Time Spent Managing Pts Care (In Minutes): 35
[2020-07-05] MEDS ORDERED: METHYLPREDNISOLONE 125 MG INJ ONE (21:22)
[2020-07-06 03:52] LABS: C-Reactive Protein 13.8 mg/L (<3.00); Magnesium 2.8 mg/dL (1.8-2.4); Phosphorus 3.6 mg/dL (2.5-4.9); Potassium 4.2 mmol/L (3.5-5.1)
[2020-07-06] MEDS: METHYLPREDNISOLONE 40 MG INJ IV SCH (09:00)
[2020-07-06] MEDS ORDERED: ATORVASTATIN 40 MG TAB PO SCH ×2 (09:00→21:00)
[2020-07-06] MEDS ORDERED: METHYLPREDNISOLONE 40 MG INJ ONE (09:31)
[2020-07-06 12:40] VITALS: O2SAT 92
--- NOTE | 2020-07-06 15:45 | P.PN ---
Subjective Date of Service: 07/06/20 Chief Complaint: COVID 19 pneumonia, hypoxia Physical Examination - Vital Signs Temperature: 98.0 F Blood Pressure: 106/85 Pulse: 89 Respirations: 24 Pulse Ox (%): 92 - Studies Laboratory Data (last 24 hrs) 07/04/20 10:10: WBC 6.2 D, Hgb 14.4, Hct 42.5, Plt Count 205 Microbiology Data (last 24 hrs): 07/04/20 10:17 Blood - Blood Anaerobic Blood Culture - Final Assessment & Plan - Problems (Diagnosis) (1) Pneumonia due to 2019 novel coronavirus Status: Acute Plan: Patient is 70 years of age admitted with pneumonia due to [place] virus she is currently doing much better plan to discharge her 4 L of nasal cannula oxygen continue with prednisone 20 mg twice a day for a week and then 10 mg twice a day in addition to aspirin is improved since admission continue with Pulmicort follow-up with me in a week labs reviewed CRP is decline
--- NOTE | 2020-07-06 15:48 | P.DS ---
Admission Date: 07/04/20 Discharge Date: 07/06/20 Disposition: ROUTINE DISCHARGE Discharge Condition: FAIR Reason for Admission: COVID 19 pneumonia, hypoxia Consultations: Pulm - Dr. Hernandez Procedures: Problem List acute hypoxic respiratory failure secondary to COVID19 Pneumonia HTN HLD Brief History of Present Illness: 70yo female, presents to ED due to worsening SOB and cough. She tested positive for COVID ~1 week ago. She reports had COVID pneumonia and has recovered. She was concerned with significant SOB over the past day so she came to ED. She otherwise denies chest pain, abd pain, n/v/d, dysuria, new rashes. In the ED she was noted to desat to 85% on room air and with slight tachypnea. CRP: 69. elevated D-dimer, had CTA 3 days ago and was negative for PE. Hospital Course: Patient was treated with high dose IV Solumedrol, O2 supplementation, and started on Eliquis. She had improvement of her symptoms, CRP downtrended, and on day of discharge she was breathing more comfortably on 3-4L NC. She would desaturate quickly down to ~85% with ambulation but improved quickly with rest. Pulmonology was consulted and felt patient was stable to discharge home with home oxygen, 2 weeks of prednisone and to continue on Eliquis. She will follow up with Dr. Hernandez in ~1 week. Her blood pressure ranged from 100-130s/70s, during her hospitalization and she was advised to hold her home Verapamil until f/u with PCP for recheck on BP. Vital Signs/Physical Exam: Temp Pulse Resp BP Pulse Ox 98.0 F 89 24 H 106/85 92 07/06/20 15:45 07/06/20 15:45 07/06/20 15:45 07/06/20 15:45 07/06/20 15:45 General: Alert, In no apparent distress, Oriented x3 HEENT: Sclerae nonicteric Respiratory: Other (non-labored on 3LNC) Cardiovascular: No edema, Regular rate/rhythm Gastrointestinal: Soft and benign, No tenderness Integumentary: No rashes Neurological: Normal speech, Normal affect Laboratory Data at Discharge: WBC 4.4 K/uL (4.3-10.9) D 07/05/20 03:28 Hgb 13.5 g/dL (12.0-15.0) 07/05/20 03:28 Hct 39.9 % (36.0-45.0) 07/05/20 03:28 Plt Count 243 K/uL (152-406) 07/05/20 03:28 PT 12.0 SECONDS (9.5-12.5) 07/04/20 10:10 INR 1.02 07/04/20 10:10 APTT 30.4 SECONDS (24.3-36.9) 07/04/20 10:10 Sodium 140 mmol/L (136-145) 07/06/20 03:07 Potassium 4.2 mmol/L (3.5-5.1) 07/06/20 03:07 BUN 39 mg/dL (7-18) H 07/06/20 03:07 Creatinine 0.86 mg/dL (0.55-1.3) 07/06/20 03:07 Glucose 172 mg/dL (74-106) H 07/06/20 03:07 Phosphorus 3.6 mg/dL (2.5-4.9) 07/06/20 03:07 Magnesium 2.8 mg/dL (1.8-2.4) H 07/06/20 03:07 Total Bilirubin 0.4 mg/dL (0.2-1.0) 07/05/20 03:28 AST 36 U/L (15-37) 07/05/20 03:28 ALT 37 U/L (12-78) 07/05/20 03:28 Alkaline Phosphatase 51 U/L (45-117) 07/05/20 03:28 Lipase 81 U/L (73-393) 07/04/20 10:10 Home Medications: Budesonide [Pulmicort*] 1 vial NEB TID 07/04/20 Simvastatin 40 mg PO DAILY 07/04/20 Solifenacin Succinate 5 tab PO DAILY 07/04/20 Apixaban [Eliquis] 5 mg PO BID 30 Days #60 tablet 07/06/20 predniSONE [Deltasone] 20 mg PO SEECOM 14 Days #21 tab 07/06/20 New Medications: Apixaban [Eliquis] 5 mg PO BID 30 Days #60 tablet predniSONE [Deltasone] 20 mg PO SEECOM 14 Days #21 tab Patient Discharge Instructions: follow up with DR. Hernandez in ~1 week. Call his office to schedule appointment. New medications: prednisone - take 20mg twice a day for 7 days, then 20mg daily for 7 days. Eliquis (Abixaban) - 5mg twice a day. Stop taking verapamil until you follow up with your PCP. Your blood pressure was on the low end in the hospital. Diet: Regular Activity: Ad true Followup: Isaac Hernandez MD [ACTIVE - CAN ADMIT] - NONE,NONE [Primary Care Provider] -
[2020-07-07] MEDS ORDERED: SOLIFENACIN SUCCIN 5 MG TAB PO SCH (09:00)
[2020-07-16 11:45] VITALS: BP 106/85; TEMP 98
== END 2020-07-06 17:23 | disposition home or self-care (01) | DRG 177 ==
LOC: ER 09:49 → ERHOLD 12:32
PROVIDERS: ADMIT Hospitalist; ATTEND Hospitalist
DX: U07.1 COVID-19 (principal); J12.89 Other viral pneumonia; J96.01 Acute respiratory failure with hypoxia; I10 Essential (primary) hypertension; E78.5 Hyperlipidemia, unspecified; Z88.5 Allergy status to narcotic agent; Z88.8 Allergy status to other drugs, medicaments and biological substances; Z79.899 Other long term (current) drug therapy; Z79.01 Long term (current) use of anticoagulants; Z79.52 Long term (current) use of systemic steroids
CPT/HCPCS: 36415; 71045; 71250; 80048; 80053; 80076; 81003; 82728; 82805; 83605; 83690; 83735; 84100; 84145; 84484; 85025; 85379; 85610; 85730; 86140; 87040; 87070; 87081; 87804; 93005; 94760; 96361; 96365; 96374; 96375; 99284; 99285; J0456; J1100; J2920; J2930; J7030; J7050; U0003